=== PATIENT | male | born 1930 | race Asian ===

== ENCOUNTER 2022-05-28 20:43 | Inpatient (IN) | payer OTHER, MEDICAID ==
[~2022-05-28] VITALS: Ht 180.3 cm; Wt 65.8 kg
[2022-05-28 20:49] VITALS: BP_SYST 159
[2022-05-28 22:05] LABS: BASOPHILS % (AUTO) 0.8 % (0.0-2.0); EOSINOPHILS % (AUTO) 0.3 % (0.0-4.0); HEMATOCRIT 34.4 % (36-54); HEMOGLOBIN 11.7 g/dL (14.0-18.0); LYMPHOCYTES # (AUTO) 0.7 K/uL (1.0-5.5); LYMPHOCYTES % (AUTO) 16.1 % (20.5-51.5); MEAN CORPUSCULAR HEMOGLOBIN 31 pg (27-31); MEAN CORPUSCULAR HGB CONC 34 % (32-36); MEAN CORPUSCULAR VOLUME 93 fL (79.0-98.0); MONOCYTES # (AUTO) 0.5 K/uL (0.0-1.0); MONOCYTES % (AUTO) 13.1 % (1.7-9.3); NEUTROPHILS # (AUTO) 2.9 K/uL (1.8-7.7); NEUTROPHILS % (AUTO) 69.7 % (40.0-70.0); PLATELET COUNT (AUTO) 127 K/uL (130-430); RED BLOOD CELL COUNT(AUTO) 3.72 MIL/uL (4.2-6.2); RED CELL DISTRIBUTION WIDTH 13.5 % (9.0-15.0); WHITE BLOOD COUNT (AUTO) 4.1 K/uL (4.8-10.8)
[2022-05-28 22:06] LABS: ACETONE, SERUM NEGATIVE (NEGATIVE)
[2022-05-28 22:09] LABS: ANION GAP 8 (5-15); CALCIUM 9.5 mg/dL (8.4-11.0); CHLORIDE 103 mmol/L (98-107); CREATININE 1.31 mg/dL (0.55-1.30); GLUCOSE 154 mg/dL (70-99); UREA NITROGEN, BLOOD 22 mg/dL (8-21)
[2022-05-28 22:24] LABS: ALANINE AMINOTRANSFERASE 24 U/L (12-78); ALBUMIN 3.3 g/dL (3.4-4.8); ASPARTATE AMINOTRANSFERASE 23 U/L (10-37); TOTAL BILIRUBIN 1.4 mg/dL (0.0-1.0)
[2022-05-28 22:58] LABS: BILIRUBIN,URINE NEGATIVE (NEGATIVE); BLOOD, URINE 2+ (NEGATIVE); CLARITY/URINE CLOUDY (CLEAR); COLOR,URINE YELLOW (YELLOW); GLUCOSE,URINE NEGATIVE (NEGATIVE); KETONES,URINE NEGATIVE (NEGATIVE); LEUKOCYTE ESTERASE ,URINE 2+ (NEGATIVE); NITRITE, URINE NEGATIVE (NEGATIVE); PROTEIN URINE 1+ (NEGATIVE); UROBILINOGEN,URINE 0.2 (0.2-1.0)
[2022-05-28 23:09] LABS: PROTHROMBIN TIME 10.8 SECS (9.5-12.5)
[2022-05-28 23:26] LABS: BACTERIA,URINE FEW /HPF (None Seen); MUCUS,URINE None Seen /LPF (None Seen); WBC,URINE >100 /HPF (0-3)
[2022-05-29 01:45] VITALS: BP_SYST 132
[2022-05-29 09:57] VITALS: BP_SYST 131
[2022-05-29] MEDS ORDERED: NALOXONE HCL 0.4 MG/ML AMP (NARCAN) IVP PRN ×2 (10:00)
[2022-05-29] MEDS ORDERED: ACETAMINOPHEN 325 MG TABLET PO PRN (10:00)
[2022-05-29] MEDS ORDERED: ONDANSETRON HCL 4 MG/2 ML VIAL IVP PRN (10:00)
[2022-05-29] MEDS ORDERED: LORazepam 2 MG/ML VIAL IVP PRN (10:00)
[2022-05-29] MEDS ORDERED: HYDROcodone/ACETAMIN 5-325 MG TAB (NORCO/ VICODIN) PO PRN (10:00)
[2022-05-29] MEDS ORDERED: FERR325T30 PO (11:19)
[2022-05-29] MEDS ORDERED: RANO500T2 PO (11:19)
[2022-05-29] MEDS ORDERED: OMEP20CA15 PO (11:19)
[2022-05-29] MEDS ORDERED: FOLI-43 PO (11:19)
[2022-05-29] MEDS ORDERED: LIP20 PO (11:19)
[2022-05-29] MEDS ORDERED: TAMS-11 PO (11:19)
[2022-05-29] MEDS ORDERED: METF-518 PO (11:19)
[2022-05-29] MEDS ORDERED: DOCU250C14 PO (11:19)
[2022-05-29] MEDS ORDERED: CLOP75TA32 PO (11:19)
[2022-05-29] MEDS ORDERED: ISOS30TA85 PO (11:19)
[2022-05-29 11:24] VITALS: BP_SYST 137
[2022-05-29] MEDS: D5/0.45 NS 1,000 ML IV SCH ×2 (12:22→23:00)
[2022-05-29] MEDS: cefTRIAXone 1 GM IVPB PREMIX 50 ML IV SCH (12:22)
[2022-05-29] MEDS: INSULIN REGULAR, HUMAN 100 UNITS/ML, 3 ML VIAL (humuLIN R) SUBCUT PRN ×3 (12:38→22:12)
[2022-05-29 15:26] VITALS: BP_SYST 139
[2022-05-29] MEDS: HYDROcodone/ACETAMIN 10-325 MG TAB PO PRN (16:35)
[2022-05-29 19:48] VITALS: BP_SYST 176
[2022-05-30 01:15] VITALS: BP_SYST 154
[2022-05-30] MEDS: HYDROcodone/ACETAMIN 10-325 MG TAB PO PRN (01:18)
[2022-05-30 04:04] VITALS: BP_SYST 145
[2022-05-30] MEDS: INSULIN REGULAR, HUMAN 100 UNITS/ML, 3 ML VIAL (humuLIN R) SUBCUT PRN ×2 (06:03→22:28)
[2022-05-30] MEDS: D5/0.45 NS 1,000 ML IV SCH ×2 (09:53→15:27)
[2022-05-30] MEDS: cefTRIAXone 1 GM IVPB PREMIX 50 ML IV SCH (09:54)
[2022-05-30] MEDS ORDERED: ACETAMINOPHEN 325 MG TABLET PO PRN (10:30)
[2022-05-30 11:31] VITALS: BP_SYST 140
[2022-05-30 14:06] LABS: BASOPHILS % (AUTO) 1.1 % (0.0-2.0); EOSINOPHILS # (AUTO) 0.1 K/uL (0.0-0.4); EOSINOPHILS % (AUTO) 1.5 % (0.0-4.0); HEMATOCRIT 34.8 % (36-54); LYMPHOCYTES # (AUTO) 1.3 K/uL (1.0-5.5); LYMPHOCYTES % (AUTO) 33.8 % (20.5-51.5); MEAN CORPUSCULAR HEMOGLOBIN 32 pg (27-31); MEAN CORPUSCULAR HGB CONC 35 % (32-36); MEAN CORPUSCULAR VOLUME 92 fL (79.0-98.0); MONOCYTES # (AUTO) 0.5 K/uL (0.0-1.0); MONOCYTES % (AUTO) 11.8 % (1.7-9.3); NEUTROPHILS % (AUTO) 51.8 % (40.0-70.0); PLATELET COUNT (AUTO) 137 K/uL (130-430); RED BLOOD CELL COUNT(AUTO) 3.79 MIL/uL (4.2-6.2); RED CELL DISTRIBUTION WIDTH 13.3 % (9.0-15.0); WHITE BLOOD COUNT (AUTO) 3.9 K/uL (4.8-10.8)
[2022-05-30 14:43] LABS: ALANINE AMINOTRANSFERASE 25 U/L (12-78); ALBUMIN 3.1 g/dL (3.4-4.8); ANION GAP 7 (5-15); ASPARTATE AMINOTRANSFERASE 23 U/L (10-37); CALCIUM 8.8 mg/dL (8.4-11.0); CHLORIDE 103 mmol/L (98-107); CREATININE 1.12 mg/dL (0.55-1.30); GLUCOSE 289 mg/dL (70-99); PHOSPHORUS 3.5 mg/dL (2.7-4.5); TOTAL BILIRUBIN 0.4 mg/dL (0.0-1.0); UREA NITROGEN, BLOOD 15 mg/dL (8-21)
[2022-05-30 15:23] VITALS: BP_SYST 156
[2022-05-30] MEDS: PSYLLIUM HUSK 1 PKT PACKET PO SCH ×2 (15:26→22:22)
[2022-05-30] MEDS: DOCUSATE SODIUM 100 MG CAPSULE PO SCH (22:22)
[2022-05-30 22:50] VITALS: BP_SYST 167
[2022-05-31 00:15] VITALS: BP_SYST 144
[2022-05-31] MEDS: D5/0.45 NS 1,000 ML IV SCH ×2 (02:00→12:46)
[2022-05-31 07:03] LABS: BASOPHILS % (AUTO) 1.1 % (0.0-2.0); EOSINOPHILS # (AUTO) 0.1 K/uL (0.0-0.4); HEMATOCRIT 34.9 % (36-54); LYMPHOCYTES # (AUTO) 1.6 K/uL (1.0-5.5); LYMPHOCYTES % (AUTO) 43.4 % (20.5-51.5); MEAN CORPUSCULAR HEMOGLOBIN 31 pg (27-31); MEAN CORPUSCULAR HGB CONC 34 % (32-36); MEAN CORPUSCULAR VOLUME 91 fL (79.0-98.0); MONOCYTES # (AUTO) 0.4 K/uL (0.0-1.0); MONOCYTES % (AUTO) 11.6 % (1.7-9.3); NEUTROPHILS # (AUTO) 1.5 K/uL (1.8-7.7); NEUTROPHILS % (AUTO) 41.9 % (40.0-70.0); PLATELET COUNT (AUTO) 145 K/uL (130-430); RED BLOOD CELL COUNT(AUTO) 3.83 MIL/uL (4.2-6.2); RED CELL DISTRIBUTION WIDTH 13.4 % (9.0-15.0); WHITE BLOOD COUNT (AUTO) 3.6 K/uL (4.8-10.8)
[2022-05-31 07:25] LABS: ANION GAP 11 (5-15); C-REACTIVE PROTEIN QUANT 0.8 mg/dL (0-0.5); CALCIUM 8.5 mg/dL (8.4-11.0); CHLORIDE 101 mmol/L (98-107); CREATININE 0.84 mg/dL (0.55-1.30); GLUCOSE 189 mg/dL (70-99); UREA NITROGEN, BLOOD 18 mg/dL (8-21)
[2022-05-31 08:00] VITALS: BP_SYST 149
[2022-05-31] MEDS: INSULIN REGULAR, HUMAN 100 UNITS/ML, 3 ML VIAL (humuLIN R) SUBCUT PRN ×3 (08:04→17:37)
[2022-05-31] MEDS: DOCUSATE SODIUM 100 MG CAPSULE PO SCH ×2 (10:19→22:18)
[2022-05-31] MEDS: PSYLLIUM HUSK 1 PKT PACKET PO SCH ×3 (10:19→22:19)
[2022-05-31] MEDS ORDERED: POTASSIUM CHLORIDE 20 MEQ TAB.PRT.SR PO ONE (11:00)
[2022-05-31 12:00] VITALS: BP_SYST 134
[2022-05-31] MEDS ORDERED: POTASSIUM CHLORIDE 20 MEQ TAB.PRT.SR ONE ×2 (12:43→13:12)
[2022-05-31] MEDS: cefTRIAXone 1 GM IVPB PREMIX 50 ML IV SCH (12:45)
[2022-05-31 12:59] LABS: ERYTHROCYTE SEDIMENTATION RATE 44 MM/HR (0-15)
[2022-05-31 17:13] VITALS: BP_SYST 128
[2022-05-31 20:30] VITALS: BP_SYST 151
[2022-06-01] VITALS: BP_SYST 155
[2022-06-01] MEDS: D5/0.45 NS 1,000 ML IV SCH ×2 (04:55→08:00)
[2022-06-01 05:42] VITALS: BP_SYST 155
[2022-06-01] MEDS: INSULIN REGULAR, HUMAN 100 UNITS/ML, 3 ML VIAL (humuLIN R) SUBCUT PRN (06:04)
[2022-06-01 06:57] LABS: EOSINOPHILS # (AUTO) 0.1 K/uL (0.0-0.4); EOSINOPHILS % (AUTO) 2.2 % (0.0-4.0); HEMATOCRIT 35.7 % (36-54); HEMOGLOBIN 12.1 g/dL (14.0-18.0); LYMPHOCYTES # (AUTO) 1.7 K/uL (1.0-5.5); MEAN CORPUSCULAR HEMOGLOBIN 31 pg (27-31); MEAN CORPUSCULAR HGB CONC 34 % (32-36); MEAN CORPUSCULAR VOLUME 92 fL (79.0-98.0); MONOCYTES # (AUTO) 0.4 K/uL (0.0-1.0); MONOCYTES % (AUTO) 9.9 % (1.7-9.3); NEUTROPHILS # (AUTO) 2.2 K/uL (1.8-7.7); NEUTROPHILS % (AUTO) 48.9 % (40.0-70.0); PLATELET COUNT (AUTO) 157 K/uL (130-430); RED BLOOD CELL COUNT(AUTO) 3.89 MIL/uL (4.2-6.2); WHITE BLOOD COUNT (AUTO) 4.4 K/uL (4.8-10.8)
[2022-06-01 07:59] LABS: ANION GAP 8 (5-15); CALCIUM 8.9 mg/dL (8.4-11.0); CHLORIDE 107 mmol/L (98-107); CREATININE 0.86 mg/dL (0.55-1.30); GLUCOSE 200 mg/dL (70-99); UREA NITROGEN, BLOOD 13 mg/dL (8-21)
[2022-06-01 08:25] VITALS: BP_SYST 148
[2022-06-01 08:51] LABS: C-REACTIVE PROTEIN QUANT < 0.2 mg/dL (0-0.5)
[2022-06-01] MEDS: DOCUSATE SODIUM 100 MG CAPSULE PO SCH (10:11)
[2022-06-01] MEDS: PSYLLIUM HUSK 1 PKT PACKET PO SCH (10:12)
[2022-06-01 10:39] LABS: ERYTHROCYTE SEDIMENTATION RATE 30 MM/HR (0-15)
[2022-06-01] MEDS ORDERED: POTASSIUM CHLORIDE 20 MEQ TAB.PRT.SR PO ONE (11:00)
[2022-06-01] MEDS: cefTRIAXone 1 GM IVPB PREMIX 50 ML IV SCH (11:18)
[2022-06-01] MEDS ORDERED: DOCU250C14 PO (11:21)
[2022-06-01] MEDS ORDERED: PSYL3.4P5 PO (11:21)
[2022-06-01] MEDS ORDERED: LEVO750T64 PO (11:21)
[2022-06-01] MEDS ORDERED: BISACODYL 10 MG/SUPPOSITORY RC ONE (12:15)
[2022-06-01 13:19] VITALS: BP_SYST 148
[2022-06-01 13:36] VITALS: BP_SYST 148
== END 2022-06-01 14:10 | disposition home health service (06) | DRG 871 ==
LOC: SED 20:43 → SMU 23:41
PROVIDERS: ADMIT Preventive Medicine Preventive Medicine/Occupational Environmental Medicine; ATTEND Preventive Medicine Preventive Medicine/Occupational Environmental Medicine
PROC: 4A00X4Z Measurement of Central Nervous Electrical Activity, External Approach (ICD-10-PCS; principal; 2022-05-30)
DX: A41.9 Sepsis, unspecified organism (principal); G93.41 Metabolic encephalopathy; N39.0 Urinary tract infection, site not specified; D61.818 Other pancytopenia; N17.9 Acute kidney failure, unspecified; I10 Essential (primary) hypertension; E11.65 Type 2 diabetes mellitus with hyperglycemia; Z20.822 Contact with and (suspected) exposure to COVID-19; K59.00 Constipation, unspecified; D64.9 Anemia, unspecified; Z79.899 Other long term (current) drug therapy; Z86.16 Personal history of COVID-19
CPT/HCPCS: 36415; 70450-TC; 71045; 74018; 76376; 80048; 80053; 81000; 82009; 82550; 82962; 83605; 83735; 84100; 84484; 85025; 85610-TC; 85651-TC; 85730-TC; 86140; 87040; 87086; 93005; 95816; 96365; 99285; J0696; J1815